=== PATIENT | male | born 1940 | race Caucasian/White ===

== ENCOUNTER → 2023-03-21 | Outpatient (REF) | payer OTHER, SELFPAY | LOC: DHSLP | PROVIDERS: ATTENDING PHYSICIAN Internal Medicine; FAMILY PHYSICIAN Internal Medicine | DX: G47.33 Obstructive sleep apnea (adult) (pediatric) (principal) | CPT/HCPCS: 95800 ==

== ENCOUNTER → 2023-11-11 15:21 | Outpatient (REF) | payer OTHER, SELFPAY ==
[2023-11-11 18:31] LABS: Erythrocyte Sed Rate 26 mm/hour (0-20)
== END ==
LOC: REG 15:21
PROVIDERS: ATTENDING PHYSICIAN Orthopaedic Surgery; FAMILY PHYSICIAN Internal Medicine
DX: M35.3 Polymyalgia rheumatica (principal)
CPT/HCPCS: 36415; 85652

== ENCOUNTER → 2024-02-16 10:57 | Outpatient (REF) | payer OTHER, SELFPAY | LOC: DHCBC/DCA 10:57 | PROVIDERS: ATTENDING PHYSICIAN Internal Medicine Cardiovascular Disease; FAMILY PHYSICIAN Internal Medicine | DX: R06.09 Other forms of dyspnea (principal) | CPT/HCPCS: 78452; 93017; A9500 ==

== ENCOUNTER → 2024-03-02 14:56 | Outpatient (REF) | payer OTHER, SELFPAY | LOC: RCS 14:56 | PROVIDERS: ATTENDING PHYSICIAN Internal Medicine Cardiovascular Disease; FAMILY PHYSICIAN Internal Medicine | DX: I77.810 Thoracic aortic ectasia (principal); R60.9 Edema, unspecified | CPT/HCPCS: 93306 ==

== ENCOUNTER → 2024-03-03 14:48 | Outpatient (REF) | payer OTHER, SELFPAY | LOC: RAD 14:48 | PROVIDERS: ATTENDING PHYSICIAN Internal Medicine Cardiovascular Disease; FAMILY PHYSICIAN Internal Medicine | DX: R60.9 Edema, unspecified (principal) | CPT/HCPCS: 93970 ==

== ENCOUNTER → 2024-06-23 10:24 | Outpatient (REF) | payer OTHER, SELFPAY | LOC: PAVMRI 10:24 | PROVIDERS: ATTENDING PHYSICIAN Physician Assistant Medical; FAMILY PHYSICIAN Internal Medicine | DX: S66.911A Strain of unspecified muscle, fascia and tendon at wrist and hand level, right hand, initial encounter (principal); M25.531 Pain in right wrist; S63.501A Unspecified sprain of right wrist, initial encounter | CPT/HCPCS: 73221 ==